=== PATIENT | female | born 1980 | race Two or more races ===

== ENCOUNTER 2025-05-08 20:32 | Emergency (ER) | payer OTHER ==
[~2025-05-08] VITALS: Ht 162.6 cm; Wt 72.6 kg
[2025-05-08] MEDS ORDERED: ENDOMETRIN100 MG (20:39)
[2025-05-08 20:46] VITALS: BP 124/85; O2SAT 98
[2025-05-08] MEDS ORDERED: ONDANSETRON HCL 2 MG/ML VIAL IM STA (21:17)
[2025-05-08 21:48] LABS: BASO % 0.6 % (0.1-1.2); EOS # 0.05 (0.04-0.54); EOS % 0.5 % (0.7-7.0); LYMPH # 2.75 (1.18-3.74); LYMPH % 26.1 % (19.3-53.1); MEAN PLATELET VOLUME 9.40 fl (9.4-12.4); MONO # 0.63 (0.24-0.82); MONO % 6.0 % (4.7-12.5); NEUT # 7.03 (1.56-6.13); NEUT % 66.5 % (34.0-71.1); RED CELL DISTRIBUTION WIDTH 14.2 % (11.6-14.4)
[2025-05-08 22:11] LABS: ALT/SGPT 30.0 U/L (12-78); AST/SGOT 26.0 U/L (15-37); BILIRUBIN TOTAL 0.34 mg/dL (0.3-1.2); BUN CREA RATIO 15.0 (7.0-25.0); CREATININE SERUM 0.8 mg/dL (0.55-1.02); GFR 77.57; GLOBULINA 3.9 G/DL (2.4-3.5); GLUCOSE FASTING 107.0 mg/dL (65-100); OSMOLALITY SERUM 280.0 MOSM/KG (275-295)
== END 2025-05-08 22:54 | disposition home or self-care (01) ==
LOC: ER 20:52
PROVIDERS: General Practice
DX: R20.2 Paresthesia of skin (principal)